=== PATIENT | female | born 1990 | race Two or more races ===

== ENCOUNTER 2020-04-05 16:38 | Emergency (ER) | payer OTHER ==
[~2020-04-05] VITALS: Ht 175.3 cm; Wt 95.3 kg
== END 2020-04-05 19:01 | disposition home or self-care (01) ==
LOC: ER 16:38
DX: S81.022A Laceration with foreign body, left knee, initial encounter (principal); W23.0XXA Caught, crushed, jammed, or pinched between moving objects, initial encounter; Y93.89 Activity, other specified; Y92.018 Other place in single-family (private) house as the place of occurrence of the external cause; Y99.8 Other external cause status